=== PATIENT | male | born 1975 | race African-American/Black ===

== ENCOUNTER 2021-12-06 00:49 | Emergency (ER) | payer MEDICAID ==
[~2021-12-06] VITALS: Ht 167.6 cm; Wt 73.0 kg
[2021-12-06] MEDS ORDERED: HYDROCODONE/ACETAMINOPHEN 5/325MG TABLET PO ONE (01:30)
[2021-12-06] MEDS ORDERED: KETOROLAC 30MG/ML VIAL IM ONE (01:30)
[2021-12-06] MEDS ORDERED: LIDOCAINE 5% PATCH TOP SCH (01:30)
[2021-12-06 03:30] VITALS: BP 107/58
[2021-12-06] MEDS ORDERED: NAPR-1176 MT (03:34)
[2021-12-06] MEDS ORDERED: CYCL10TA7 MT (03:34)
== END 2021-12-06 03:45 | disposition home or self-care (01) ==
LOC: ER 00:49
DX: S16.1XXA Strain of muscle, fascia and tendon at neck level, initial encounter (principal); T14.8XXA Other injury of unspecified body region, initial encounter; X58.XXXA Exposure to other specified factors, initial encounter; Y93.89 Activity, other specified; Y92.89 Other specified places as the place of occurrence of the external cause; Y99.8 Other external cause status
CPT/HCPCS: 72125; 96372; 99284; J1885